=== PATIENT | female | born 1995 | race Caucasian/White ===

== ENCOUNTER 2017-04-05 18:05 | Emergency (ER) | payer OTHER ==
[~2017-04-05] VITALS: Ht 167.6 cm; Wt 60.0 kg
[2017-04-05 18:08] VITALS: BP 166/88; PULSE 105; RESP 14; TEMP 98.2; O2SAT 99
--- NOTE | 2017-04-05 19:29 | PD ---
HPI Chief Complaint: Skin Problem Time Seen by Provider: 19:20 Travel History International Travel<30 days: No Contact w/Intl Traveler<30days: No Traveled to known affect area: No History of Present Illness HPI This patient was examined in the presence of a nurse. 22-year-old female presents for evaluation of an abscess to the right antecubital region. She reports that she injected heroin about 1.5 weeks ago. She has never injected drugs before. Since then she has had increasing soft tissue swelling and pain in the region where she injected. Pain is an aching pain, constant, worse with palpation. Denies any drainage. No fevers. Denies any chest pain or shortness of breath. She has no desire to use IV drugs again and she denies any oral drug use. She has no other complaints at this time. [facility] Past Medical History Medical History: Denies Significant Hx Diminished Hearing: No Tetanus Vaccination: Unknown Influenza Vaccination: No ?: Unknown LMP: 03/02/17 Past Surgical History Surgical History: No Previous Surgery Social History Alcohol Use: Yes (OCCASSIONALLY) Tobacco Use: Yes (5 CIGS A DAY) Substance Use: Yes (HEROIN) Allergies-Medications (Allergen,Severity, Reaction): Coded Allergies: No Known Allergies (Unverified , 04/05/17) Reported Meds & Prescriptions Reported Meds & Active Scripts Active Keflex (Cephalexin) 500 Mg Cap 500 Mg PO Q8H Bactrim DS (Sulfamethoxazole-Trimethoprim) 800-160 Mg Tab 1 Tab PO BID Review of Systems General / Constitutional: No: Fever, Chills Cardiovascular: No: Chest Pain or Discomfort Respiratory: No: Shortness of Breath Skin: Positive Other (positive for soft tissue swelling, redness, pain.) Physical Exam Narrative GENERAL: Well-developed well-nourished female who is tearful and anxious upon initial examination. SKIN: Warm and dry. There is a 2 cm fluctuant abscess in the right antecubital region. There is no surrounding erythema, no proximal streaking or axillary lymphadenopathy. HEAD: Atraumatic. Normocephalic. EYES: Pupils equal and round. No scleral icterus. No injection or drainage. ENT: No nasal bleeding or discharge. Mucous membranes pink and moist. NECK: Trachea midline. No JVD. CARDIOVASCULAR: Regular rate and rhythm. No murmur appreciated. RESPIRATORY: No accessory muscle use. Clear to auscultation. Breath sounds equal bilaterally. MUSCULOSKELETAL: No obvious deformities. No clubbing. No cyanosis. No edema. NEUROLOGICAL: Awake and alert. No obvious cranial nerve deficits. Motor grossly within normal limits. Normal speech. Data Data Last Documented VS Vital Signs Date Time Temp Pulse Resp B/P Pulse Ox O2 Delivery O2 Flow Rate FiO2 04/05/17 18:08 98.2 105 14 166/88 99 Orders Wound Culture And Gram Stain (04/05/17 19:27) Lidocai-Epi 1%-1:100,000 Inj (Xylocaine- (04/05/17 19:30) Sulfamet-Trimeth Ds 800-160 Mg (Bactrim (04/05/17 19:30) Cephalexin (Keflex) (04/05/17 19:30) [facility] Medical Decision Making Medical Screen Exam Complete: Yes Emergency Medical Condition: Yes Medical Record Reviewed: Yes Differential Diagnosis Abscess, cellulitis, lymphangitis, erysipelas necrotizing fasciitis, osteomyelitis Narrative Course 22-year-old female who reports that she injected heroin in her right arm 1.5 weeks ago, since then has developed gradually worsening soft tissue swelling and redness to the right tibial region. Examination reveals a 2 some ear fluctuant abscess with minimal surrounding cellulitic changes. Plan is for bedside incision and drainage for which she verbally consents. Wound culture was performed. The patient is being discharged with broad-spectrum antibiotics , recommended follow up for new or worsening symptoms. Procedures Procedure Narrative INCISION AND DRAINAGE OF ABSCESS: The area was prepped and was sterilely draped. A subcutaneous wheal of 1% Xylocaine with epinephrine with a total number 7 mL was used to anesthetize the area. The area was properly anesthetized. A number 11 scalpel was used to make a 1-cm incision across the area of the abscess. Cultures were obtained. The abscess was drained an irrigated with normal saline. Diagnosis Primary Impression: Abscess of right arm Additional Instructions: Take antibiotics as prescribed. Wash with warm soap and water twice a day and apply antibiotic cream and clean bandages. Return for evidence of worsening infection such as increasing redness and soft tissue swelling, red streaks up the arm, fevers. Med/Other Pt SpecificInfo: Prescription(s) given, Wound Care Scripts Cephalexin (Keflex)500 Mg [id number] Mg PO Q8H #30 CAP Ref 0 Prov:Jarek Zarate MD 04/05/17 Sulfamethoxazole-Trimethoprim (Bactrim DS)800-160 Mg Tab1 Tab PO BID #20 TAB Ref 0 Prov:Jarek Zarate MD 04/05/17 Disposition: 01 DISCHARGE HOME Condition: Stable Brandyn Cary April 05, 2017 19:29
[2017-04-05] MEDS ORDERED: CEPHALEXIN MONOHYDRATE 500 MG CAP PO ONE (19:30)
[2017-04-05] MEDS ORDERED: LIDOCAINE 1%/EPINEPHrine 1:100,000 SOLN 20 ML VIAL INFIL ONE (19:30)
[2017-04-05] MEDS ORDERED: SULFAMETHOXAZOLE-TRIMETHOPRIM DS 800-160 MG TAB PO ONE (19:30)
[2017-04-05] MEDS ORDERED: BACT800T5 PO (19:42)
[2017-04-05] MEDS ORDERED: CEPH-460 PO (19:42)
[2017-04-05 19:50] VITALS: BP 137/81; PULSE 80; RESP 18; TEMP 99; O2SAT 97
== END 2017-04-05 20:05 | disposition home or self-care (01) ==
LOC: NEPD 18:05
DX: L02.413 Cutaneous abscess of right upper limb (principal); B95.61 Methicillin susceptible Staphylococcus aureus infection as the cause of diseases classified elsewhere; F11.90 Opioid use, unspecified, uncomplicated; Z72.0 Tobacco use
CPT/HCPCS: 10060; 86403; 87070; 87186; 87205